=== PATIENT | female | born 1990 | race Caucasian/White ===

== ENCOUNTER 2021-06-27 07:54 | Emergency (ER) | payer BC ==
[2021-06-27] MEDS ORDERED: Sodium Chloride 0.9% 10 ML Syringe FLUSH PRN (08:15)
[2021-06-27] MEDS ORDERED: Lactated Ringers 1,000 ML IV ONE ×2 (08:15→10:07)
[2021-06-27] MEDS ORDERED: Prochlorperazine 10 MG/2 ML SDV IV ONE (08:16)
--- NOTE | 2021-06-27 08:22 | EDM.PDOC ---
ED HPI GENERAL MEDICAL PROBLEM - General Source of Information: Reports: Patient <Bernie Hernandez - Last Filed: 06/27/21 08:16> - General Source of Information: Reports: Patient - History of Present Illness Onset: Gradual Onset Date: 06/26/21 Duration: Day(s): Location: Reports: Abdomen Quality: Reports: Ache, Dull Severity: Mild Improves with: Reports: Other <VahidLinda - Last Filed: 06/27/21 11:17> - General Chief Complaint: Abdominal Pain Stated Complaint: abd pain Time Seen by Provider: 06/27/21 08:12 - History of Present Illness INITIAL COMMENTS - FREE TEXT/NARRATIVE: Madeline is a 30 y/o female who presents to the ER with abdominal pain that started about 0600 this AM. She was fine when she went to bed last night. She woke up and vomited twice and also had a large diarrhea stool. No fever. No respiratory sx. She describes the pain as 10/10 and "worse than labor". She points to her RUQ and epigastric region to identify the location of the pain, but reports "all over". Currently has a Nexplanon, last LMP Mar 2020. (Bernie Hernandez) - Related Data Allergies Allergy/AdvReac Type Severity Reaction Status Date / Time ondansetron [From Zofran] Allergy Other Verified 06/27/21 07:55 Home Meds: Home Meds Sertraline [Zoloft] 1 tab PO DAILY 06/27/21 [History] hydrOXYzine HCL [Atarax] 25 mg PO Q6H 06/27/21 [History] Review of Systems - Review of Systems Review Of Systems: See Below Constitutional: Reports: No Symptoms Eyes: Reports: No Symptoms Ears: Reports: No Symptoms Nose: Reports: No Symptoms Mouth/Throat: Reports: No Symptoms Respiratory: Reports: No Symptoms Cardiovascular: Reports: No Symptoms GI/Abdominal: Reports: Abdominal Pain, Diarrhea, Nausea, Vomiting Genitourinary: Reports: No Symptoms Musculoskeletal: Reports: No Symptoms Skin: Reports: No Symptoms Neurological: Reports: No Symptoms <Bernie Hernandez - Last Filed: 06/27/21 08:16> - Review of Systems Review Of Systems: See Below Constitutional: Reports: No Symptoms Eyes: Reports: No Symptoms Ears: Reports: No Symptoms Nose: Reports: No Symptoms Mouth/Throat: Reports: No Symptoms Respiratory: Reports: No Symptoms Cardiovascular: Reports: No Symptoms GI/Abdominal: Reports: Abdominal Pain. Denies: Diarrhea, Nausea, Vomiting Genitourinary: Reports: No Symptoms Musculoskeletal: Reports: No Symptoms Skin: Reports: No Symptoms Neurological: Reports: No Symptoms Psychiatric: Reports: No Symptoms <Linda Redding - Last Filed: 06/27/21 11:17> ED EXAM, GENERAL - Physical Exam Exam: See Below General Appearance: Alert, WD/WN, Other (Adult female lying on her right side on the ER cart holding her abdomen.) Ears: Normal Canal, Hearing Grossly Normal Nose: Normal Inspection, Normal Mucosa Throat/Mouth: Normal Inspection, Normal Lips, Normal Oropharynx, Normal Voice Head: Atraumatic, Normocephalic Neck: Supple Respiratory/Chest: No Respiratory Distress, Lungs Clear, Chest Non-Tender Cardiovascular: Normal Peripheral Pulses, Regular Rate, Rhythm, No Murmur GI/Abdominal: Normal Bowel Sounds, Soft, No Distention, Tender (Diffusely tender with increased tenderness in samia RUQ and Epigastrum.) (Female) Exam: Deferred Rectal (Female) Exam: Deferred Back Exam: Other (Mild tenderness in the right flank region) Extremities: Normal Inspection, Normal Range of Motion, No Pedal Edema, Normal Capillary Refill Neurological: Alert, Oriented, CN II-XII Intact, Normal Cognition, No Motor/Sensory Deficits Psychiatric: Normal Affect, Normal Mood Skin Exam: Warm, Dry, Intact <Bernie Hernandez - Last Filed: 06/27/21 08:16> - Physical Exam Exam: See Below Exam Limited By: No Limitations General Appearance: Alert, WD/WN, No Apparent Distress Ears: Normal External Exam Nose: Normal Inspection Throat/Mouth: Normal Inspection Head: Atraumatic, Normocephalic Neck: Supple Respiratory/Chest: No Respiratory Distress, Lungs Clear, Normal Breath Sounds, No Accessory Muscle Use, Chest Non-Tender Cardiovascular: Regular Rate, Rhythm, No Murmur GI/Abdominal: Normal Bowel Sounds, Soft, No Distention. No: Guarding, Rigid (Female) Exam: Deferred Rectal (Female) Exam: Deferred Extremities: Normal Inspection, Normal Range of Motion, No Pedal Edema Neurological: Alert, Oriented, Normal Cognition, No Motor/Sensory Deficits Psychiatric: Normal Affect, Normal Mood Skin Exam: Warm, Dry, Intact <Linda Redding - Last Filed: 06/27/21 11:17> Course <Bernie Hernandez - Last Filed: 06/27/21 08:16> <Linda Redding - Last Filed: 06/27/21 11:17> - Vital Signs Text/Narrative:: 0810 The patient was seen by the INTERN[employer]ST. Labs ordered. LR bolus ordered along with Fentanyl 100mcg and Compazine 10mg IVP. [address] Redding at shift change. (Bernie Hernandez) Last Recorded V/S: Last Vital Signs Temp 98.2 F 06/27/21 08:00 Pulse 82 06/27/21 08:00 Resp 22 H 06/27/21 08:00 BP 133/90 06/27/21 08:00 Pulse Ox 99 06/27/21 08:00 - Orders/Labs/Meds Orders: Active Orders 24 hr Category Date Time Status Abdomen Pelvis w Cont [CT] Stat Exams 06/27/21 09:36 Taken Sodium Chloride 0.9% [Saline Flush] Med 06/27/21 08:15 Active 10 ml FLUSH ASDIRECTED PRN Isolation [COMM] Routine Oth 06/27/21 09:45 Active Saline Lock Insert [OM.PC] Stat Oth 06/27/21 08:14 Ordered Medication Orders Sodium Chloride (Sodium Chloride 0.9% 10 Ml Syringe) 10 ml FLUSH ASDIRECTED PRN PRN Reason: Keep Vein Open Last Admin: 06/27/21 08:43 Dose: 10 ml Documented by: NOEL Labs: Laboratory Tests 06/27/21 06/27/21 06/27/21 Range/Units 08:23 08:30 08:30 WBC 9.0 (4.0-10.2) K/uL RBC 4.99 (3.77-5.09) M/uL Hgb 13.4 (11.7-15.5) g/dL Hct 41.1 (34.0-46.0) % MCV 82.4 L (84.0-98.0) fL MCH 26.9 L (28.2-33.3) pg MCHC 32.6 (31.7-36.0) g/dL RDW 14.1 (11.2-14.1) % Plt Count 311 (150-350) K/uL Neut % (Auto) 71.3 (45.0-80.0) % Lymph % (Auto) 20.6 (10.0-50.0) % [place] % (Auto) 6.3 (2.0-14.0) % Eos % (Auto) 1.4 (0.0-5.0) % Baso % (Auto) 0.4 (0.0-2.0) % Neut # (Auto) 6.39 (1.40-7.00) K/uL Lymph # (Auto) 1.85 (0.50-3.50) K/uL [place] # (Auto) 0.57 (0.00-1.00) K/uL Eos # (Auto) 0.13 (0.00-0.50) K/uL Baso # (Auto) 0.04 (0.00-0.20) K/uL Sodium 142 (136-145) mmol/L Potassium 3.9 (3.5-5.1) mmol/L Chloride 107 (98-107) mmol/L Carbon Dioxide 23.9 (21.0-32.0) mmol/L Anion Gap 11.1 (7-15) meq/L BUN 13 (7-18) mg/dL Creatinine 0.80 (0.51-1.17) mg/dL Est Cr Clr Drug Dosing TNP Estimated GFR (MDRD) > 60 mL/min Glucose 105 H (70-99) mg/dL Lactic Acid (0.4-2.0) mmol/L Calcium 8.3 L (8.5-10.1) mg/dL Total Bilirubin 0.3 (0.2-1.0) mg/dL AST 14 L (15-37) U/L ALT 19 (12-78) U/L Alkaline Phosphatase 105 (46-116) IU/L Total Protein 7.7 (6.4-8.2) g/dL Albumin 3.8 (3.4-5.0) g/dL Amylase 48 (25-115) U/L Lipase 148 (73-393) U/L HCG, Qual (NEGATIVE) Specimen Type Urine Color Urine Appearance Urine pH (5.0-9.0) Ur Specific [place] (1.005-1.030) Urine Protein (NEGATIVE) mg/dL Urine Glucose (UA) (NEGATIVE) mg/dL Urine Ketones (NEGATIVE) mg/dL Urine Occult Blood (NEGATIVE) Urine Nitrite (NEGATIVE) Urine Bilirubin (NEGATIVE) Urine Urobilinogen (0.2-1.0) E.U./dL Ur Leukocyte Esterase (NEGATIVE) SARS-CoV-2 RNA (EARNEST) Negative (NEGATIVE) 06/27/21 06/27/21 06/27/21 Range/Units 08:30 08:35 10:20 WBC (4.0-10.2) K/uL RBC (3.77-5.09) M/uL Hgb (11.7-15.5) g/dL Hct (34.0-46.0) % MCV (84.0-98.0) fL MCH (28.2-33.3) pg MCHC (31.7-36.0) g/dL RDW (11.2-14.1) % Plt Count (150-350) K/uL Neut % (Auto) (45.0-80.0) % Lymph % (Auto) (10.0-50.0) % [place] % (Auto) (2.0-14.0) % Eos % (Auto) (0.0-5.0) % Baso % (Auto) (0.0-2.0) % Neut # (Auto) (1.40-7.00) K/uL Lymph # (Auto) (0.50-3.50) K/uL [place] # (Auto) (0.00-1.00) K/uL Eos # (Auto) (0.00-0.50) K/uL Baso # (Auto) (0.00-0.20) K/uL Sodium (136-145) mmol/L Potassium (3.5-5.1) mmol/L Chloride (98-107) mmol/L Carbon Dioxide (21.0-32.0) mmol/L Anion Gap (7-15) meq/L BUN (7-18) mg/dL Creatinine (0.51-1.17) mg/dL Est Cr Clr Drug Dosing Estimated GFR (MDRD) mL/min Glucose (70-99) mg/dL Lactic Acid 0.7 (0.4-2.0) mmol/L Calcium (8.5-10.1) mg/dL Total Bilirubin (0.2-1.0) mg/dL AST (15-37) U/L ALT (12-78) U/L Alkaline Phosphatase (46-116) IU/L Total Protein (6.4-8.2) g/dL Albumin (3.4-5.0) g/dL Amylase (25-115) U/L Lipase (73-393) U/L HCG, Qual Negative (NEGATIVE) Specimen Type Urincc Urine Color Yellow Urine Appearance Clear Urine pH 7.0 (5.0-9.0) Ur Specific [place] 1.020 (1.005-1.030) Urine Protein Negative (NEGATIVE) mg/dL Urine Glucose (UA) Negative (NEGATIVE) mg/dL Urine Ketones Negative (NEGATIVE) mg/dL Urine Occult Blood Negative (NEGATIVE) Urine Nitrite Negative (NEGATIVE) Urine Bilirubin Negative (NEGATIVE) Urine Urobilinogen 0.2 (0.2-1.0) E.U./dL Ur Leukocyte Esterase Negative (NEGATIVE) SARS-CoV-2 RNA (EARNEST) (NEGATIVE) Meds: Medications Generic Name Dose Route Start Last Admin Trade Name Freq PRN Reason Stop Dose Admin Sodium Chloride 10 ml 06/27/21 08:15 06/27/21 08:43 Sodium Chloride 0.9% 10 Ml Syringe FLUSH 10 ml ASDIRECTED PRN Administration Keep Vein Open Discontinued Medications Generic Name Dose Route Start Last Admin Trade Name Freq PRN Reason Stop Dose Admin Fentanyl 100 mcg 06/27/21 08:28 06/27/21 08:41 Fentanyl 100 Mcg/2 Ml Sdv IVPUSH 06/27/21 08:29 100 mcg ONETIME ONE Administration Lactated Ringer's 1,000 mls @ 999 mls/hr 06/27/21 08:15 06/27/21 08:45 Ringers, Lactated IV 06/27/21 09:15 999 mls/hr .BOLUS ONE Administration Lactated Ringer's 1,000 mls @ 999 mls/hr 06/27/21 10:07 06/27/21 10:13 Ringers, Lactated IV 06/27/21 11:07 999 mls/hr .BOLUS ONE Administration Iopamidol 100 ml 06/27/21 09:45 06/27/21 10:23 Iopamidol 612 Mg/Ml 100 Ml Bottle IVPUSH 06/27/21 09:46 100 ml ONETIME STA Administration Iopamidol Confirm 06/27/21 09:51 Iopamidol 612 Mg/Ml 100 Ml Bottle Administered 06/27/21 09:52 Dose 100 ml .ROUTE .STK-MED ONE Prochlorperazine Edisylate 10 mg 06/27/21 08:16 06/27/21 08:43 Prochlorperazine 10 Mg/2 Ml Sdv IV 06/27/21 08:17 10 mg ONETIME ONE Administration - Re-Assessments/Exams Free Text/Narrative Re-Assessment/Exam: 06/27/21 09:[address] Linda Redding 06/27/21 10:04 UA still pending, has not given a urine sample yet. RSV positive. CBC and CMP WNL. CT abdomen pelvis ordered. likely extrapulmonary manifestation of RSV. Pt resting comfortably. 1L IVF given with another bag started 06/27/21 11:14 CT abdomen WNL- notified by [facility] (Linda Redding) Departure <Bernie Hernandez - Last Filed: 06/27/21 08:16> - Departure Time of Disposition: 11:16 Condition: Good - Discharge Information *PRESCRIPTION DRUG MONITORING PROGRAM REVIEWED*: Not Applicable *COPY OF PRESCRIPTION DRUG MONITORING REPORT IN PATIENT GABRIELA: Not Applicable <Linda Redding - Last Filed: 06/27/21 11:17> - Departure Disposition: Home, Self-Care 01 Clinical Impression: Gastroenteritis - Discharge Information Referrals: Yudith Royal PA-C [Primary Care Provider] - Forms: ED Department Discharge Additional Instructions: stay well hydrated. take acetaminophen OTC for pain control. this is a viral infection and will self resolve with time. Sepsis Event Note (ED) - Evaluation Sepsis Screening Result: No Definite Risk <Bernie Hernandez - Last Filed: 06/27/21 08:16> - Focused Exam Vital Signs: Vital Signs Temp Pulse Resp BP Pulse Ox 06/27/21 08:00 98.2 F 82 22 H 133/90 99 ED Communication - Discussed Case With (1) Discussed Case With (1): Radiologist Person/s Notified (1): Dr Mcnamara (CT abdomen WNL) <Linda Redding - Last Filed: 06/27/21 11:17> - Problem List Review Problem List Initiated/Reviewed/Updated: Yes <Linda Redding - Last Filed: 06/27/21 11:17> - My Orders Last 24 Hours: My Active Orders 06/27/21 09:36 Abdomen Pelvis w Cont [CT] Stat 06/27/21 09:45 Isolation [COMM] Routine - Assessment/Plan Last 24 Hours: My Active Orders 06/27/21 09:36 Abdomen Pelvis w Cont [CT] Stat 06/27/21 09:45 Isolation [COMM] Routine Assessment:: extrapulmonary RSV - RSV positive. GI pain and symptoms likely secondary to extrapulmonary manifestation. - CT abdomen WNL - HCG negative, CBC and CMP WNL - symptom management with acetaminophen OTC for pain control, drink plenty of fluids, follow up with PCP (Linda Redding)
[2021-06-27] MEDS ORDERED: fentaNYL 100 MCG/2 ML SDV IVPUSH ONE (08:28)
[2021-06-27 08:56] LABS: ANION GAP 11.1 meq/L (7-15); CHLORIDE,CL 107 mmol/L (98-107); SODIUM,NA 142 mmol/L (136-145)
[2021-06-27] MEDS ORDERED: Iopamidol 612 MG/ML 100 ML Bottle IVPUSH STA (09:45)
[2021-06-27] MEDS ORDERED: Iopamidol 612 MG/ML 100 ML Bottle ONE (09:51)
== END 2021-06-27 11:35 | disposition home or self-care (01) ==
LOC: LL.ED 07:54
DX: K52.9 Noninfective gastroenteritis and colitis, unspecified (principal); Z88.8 Allergy status to other drugs, medicaments and biological substances; Z20.822 Contact with and (suspected) exposure to COVID-19
CPT/HCPCS: 36415; 74177; 80053; 81003; 82150; 83605; 83690; 84703; 85025; 87807; 96374; 96375; 99284-25; J0780; J3010; J7120; Q9967; U0002